=== PATIENT | female | born 1970 | race Caucasian/White ===

== ENCOUNTER 2025-02-01 06:29 | Day surgery (SDC) | payer BC, SELFPAY | END 2025-02-01 12:18 | disposition home or self-care (01) | LOC: GI 06:29 | PROVIDERS: ATTENDING PHYSICIAN Internal Medicine | DX: Z12.11 Encounter for screening for malignant neoplasm of colon (principal); K57.30 Diverticulosis of large intestine without perforation or abscess without bleeding; K64.9 Unspecified hemorrhoids | CPT/HCPCS: G0121 ==